=== PATIENT | female | born 1990 | race Caucasian/White ===

== ENCOUNTER 2016-12-31 12:05 | Emergency (ER) | payer OTHER ==
--- NOTE | 2016-12-31 12:49 | EDPHY ---
H & P Stated Complaint: sz Time Seen by Provider: 12/31/16 12:49 HPI/ROS: CHIEF COMPLAINT: Seizure HISTORY OF PRESENT ILLNESS: The patient presents to the ED after witnessed seizure. The patient is currently an inpatient alcohol treatment program. Her last drink of alcohol was 2 weeks ago. Over the past several weeks the patient reportedly has had 3 seizures including today. She was started on Keppra on Monday of this week. The patient did not sustain any significant trauma those results of her seizure today. She did bite the left side of her tongue. The patient is on a number of psychiatric medications. The patient denies any acute headache, numbness, weakness, fever or other acute complaints. REVIEW OF SYSTEMS: A comprehensive 10 point review of systems is otherwise negative aside from elements mentioned in the history of present illness. Source: Patient Exam Limitations: No limitations - Personal History Current Tetanus Diphtheria and Acellular Pertussis (TDAP): Unsure - Medical/Surgical History Hx Asthma: No Hx Chronic Respiratory Disease: No Hx Diabetes: No Hx Cardiac Disease: No Hx Renal Disease: No Hx Cirrhosis: No Hx Alcoholism: No Hx HIV/AIDS: No Hx Splenectomy or Spleen Trauma: No Other PMH: med hx-depression/ anxiety, restless leg syndrome. surg-none - Social History Smoking Status: Current every day smoker - Physical Exam Exam: General Appearance: Alert, no distress Eyes: Pupils equal and round no pallor or injection ENT, Mouth: Small tongue contusion Respiratory: There are no retractions, lungs are clear to auscultation Cardiovascular: Regular rate and rhythm Gastrointestinal: Abdomen is soft and nontender, no masses, bowel sounds normal Neurological: A&O, normal motor function, normal sensory exam, normal cranial nerves Skin: Warm and dry, no rashes Musculoskeletal: Neck is supple nontender Extremities: symmetrical, full range of motion Constitutional: Initial Vital Signs Heart Rate 66 12/31/16 12:28 Respiratory Rate 16 12/31/16 12:28 Blood Pressure 116/70 12/31/16 12:28 O2 Sat (%) 95 12/31/16 12:28 O2 Delivery Mode Room Air Allergies/Adverse Reactions: No Known Allergies Allergy (Verified 09/26/15 22:36) Home Medications: Medication Instructions Recorded Gabapentin 200 09/26/15 Prozac 20 MG (RX) 09/26/15 LORazepam [Ativan] 0.5 mg PO Q6 #10 tab 09/27/15 Buspar (*) 12/31/16 Hydroxyzine HCl 12/31/16 Keppra 12/31/16 Lexapro 12/31/16 OLANZapine 12/31/16 Propranolol HCl 12/31/16 hydrOXYzine HCL [Hydroxyzine HCl] 12/31/16 Medical Decision Making ED Course/Re-evaluation: The patient presents to the ED after a possible seizure. I spoke with her treating psychiatrist. It is somewhat uncertain whether these represent true seizures or pseudoseizures. The patient reportedly has a history of this type of activity as an attempt to get benzodiazepines according to his report. The patient did get started on Keppra prophylactically. The patient has no evidence of significant withdrawal clinically. She has no evidence of an acidosis. The patient's neurologic examination remains normal. At this point time she will be given customary seizure aftercare instructions although the possibility of pseudo-seizure has been raised. The patient will follow up with our outpatient neurologist for further workup. Differential Diagnosis: Differential diagnosis considered includes seizure, pseudo-seizure, metabolic abnormality, syncope - Data Points Laboratory Results: Laboratory Results 12/31/16 13:46 12/31/16 12:25 12/31/16 12/31/16 12/31/16 13:46 12:25 12:25 WBC 9.04 10^3/uL 10^3/uL (3.80-9.50) RBC 4.41 10^6/uL 10^6/uL (4.18-5.33) Hgb 14.4 g/dL g/dL (12.6-16.3) Hct 42.5 % % (38.0-47.0) MCV 96.4 fL fL (81.5-99.8) MCH 32.7 pg pg (27.9-34.1) MCHC 33.9 g/dL g/dL (32.4-36.7) RDW 12.0 % % (11.5-15.2) Plt Count 188 10^3/uL 10^3/uL (150-400) MPV 9.8 fL fL (8.7-11.7) Neut % (Auto) 71.5 % % (39.3-74.2) Lymph % (Auto) 18.9 % % (15.0-45.0) [place] % (Auto) 7.1 % % (4.5-13.0) Eos % (Auto) 1.8 % % (0.6-7.6) Baso % (Auto) 0.4 % % (0.3-1.7) Nucleat RBC Rel Count 0.0 % % (0.0-0.2) Absolute Neuts (auto) 6.46 10^3/uL 10^3/uL (1.70-6.50) Absolute Lymphs (auto) 1.71 10^3/uL 10^3/uL (1.00-3.00) Absolute Monos (auto) 0.64 10^3/uL 10^3/uL (0.30-0.80) Absolute Eos (auto) 0.16 10^3/uL 10^3/uL (0.03-0.40) Absolute Basos (auto) 0.04 10^3/uL 10^3/uL (0.02-0.10) Absolute Nucleated RBC 0.00 10^3/uL 10^3/uL (0-0.01) Immature Gran % 0.3 % % (0.0-1.1) Immature Gran # 0.03 10^3/uL 10^3/uL (0.00-0.10) Sodium 141 mEq/L mEq/L (134-144) Potassium 4.4 mEq/L mEq/L (3.5-5.2) Chloride 105 mEq/L mEq/L (97-110) Carbon Dioxide 24 mEq/l mEq/l (22-31) Anion Gap 12 mEq/L mEq/L (8-16) BUN 13 mg/dL mg/dL (7-23) Creatinine 0.9 mg/dL mg/dL (0.6-1.0) Estimated GFR > 60 Glucose 80 mg/dL mg/dL (70-100) Calcium 9.6 mg/dL mg/dL (8.5-10.4) Beta HCG, Qual NEGATIVE Departure - Departure Disposition: Home, Routine, Self-Care Clinical Impression: Seizure disorder Condition: Good Instructions: New-Onset Seizure in Adults (ED) Additional Instructions: 1. No driving, dangerous activities such as riding a ski lift, swimming in a pool or other behavior that could put you or someone else at risk in the event of a recurrent seizure. You will need to be cleared by a neurologist to resume these activities. 2. Please return to the ED for recurrent seizure, headache, numbness, weakness, altered mental status or other concerns. 3. Please follow up with neurologist you have been referred to this week to schedule a follow-up appointment. Referrals: Daniel Slade MD [Medical Doctor] - As per Instructions
[2016-12-31 13:21] LABS: ANION GAP 12 mEq/L (8-16); CALCIUM 9.6 mg/dL (8.5-10.4); CARBON DIOXIDE 24 mEq/l (22-31); CHLORIDE 105 mEq/L (97-110); CREATININE 0.9 mg/dL (0.6-1.0); GLOMERULAR FILTRATION RATE > 60; GLUCOSE 80 mg/dL (70-100); POTASSIUM 4.4 mEq/L (3.5-5.2); SODIUM 141 mEq/L (134-144)
[2016-12-31 13:52] LABS: % IMMATURE GRANULYOCYTES 0.3 % (0.0-1.1); ABSOLUTE IMMATURE GRANULOCYTES 0.03 10^3/uL (0.00-0.10); ADD DIFF? NO; ADD MORPH? NO; ADD SCAN? NO; ATYPICAL LYMPHOCYTE FLAG 10 (0-99); FRAGMENT RBC FLAG 0 (0-99); HEMATOCRIT 42.5 % (38.0-47.0); HEMOGLOBIN 14.4 g/dL (12.6-16.3); LEFT SHIFT FLG 0 (0-99); LIPEMIA HEMOLYSIS FLAG 90 (0-99); MEAN CELL HEMOGLOBIN 32.7 pg (27.9-34.1); MEAN CELL HEMOGLOBIN CONCENTR. 33.9 g/dL (32.4-36.7); MEAN CELL VOLUME 96.4 fL (81.5-99.8); MEAN PLATELET VOLUME 9.8 fL (8.7-11.7); PLATELET CLUMPS FLAG 20 (0-99); PLATELET COUNT 188 10^3/uL (150-400); RED BLOOD CELL COUNT 4.41 10^6/uL (4.18-5.33)
[2016-12-31 14:30] VITALS: BP 107/68; PULSE 74; RESP 16; TEMP 98.2; O2SAT 95
== END 2016-12-31 14:29 | disposition home or self-care (01) ==
LOC: EDUNIT#
DX: G40.909 Epilepsy, unspecified, not intractable, without status epilepticus (principal); F17.200 Nicotine dependence, unspecified, uncomplicated